=== PATIENT | female | born 1985 | race Caucasian/White ===

== ENCOUNTER 2023-04-29 14:51 | Emergency (ER) | payer OTHER ==
[2023-04-29 15:15] VITALS: BP 121/87; TEMP 97.8
[2023-04-29] MEDS ORDERED: NICOTINE 21MG/24HR PATCH TRANSDERM STA (15:15)
--- NOTE | 2023-04-29 15:15 | ED ---
General Adult HPI - General Chief complaint: Psychiatric Symptoms Stated complaint: mental Health Time Seen by Provider: 04/29/23 15:01 Source: patient, RN notes reviewed Mode of arrival: ambulatory Limitations: no limitations - History of Present Illness Initial comments: 38-year-old female with no significant past medical history presents the emergency department the chief complaint of psychiatric evaluation. Patient reports that she's had worsening depressive thoughts over the last few days. She denies any active suicidal plan however she does report passage suicidal ideation. She is requesting having a psychiatric evaluation. . She denies any visual hallucinations or auditory hallucinations. Denies recent alcohol use. Denies any specific complaints. - Related Data Allergies Allergy/AdvReac Type Severity Reaction Status Date / Time chlordiazepoxide AdvReac Rash/Hives Verified 04/29/23 14:56 [From Librium] Review of Systems ROS Statement: Those systems with pertinent positive or pertinent negative responses have been documented in the HPI. ROS Other: All systems not noted in ROS Statement are negative. Past Medical History History of Any Multi-Drug Resistant Organisms: None Reported Past Psychological History: No Psychological Hx Reported Smoking Status: Current every day smoker, Vaper Past Alcohol Use History: None Reported Past Drug Use History: None Reported General Exam - General Exam Comments Initial Comments: General: Alert, in no acute distress Head: atraumatic normocephalic. Eyes PERRL, EOMI intact, mucous membranes moist Respiratory: Lungs clear to auscultation bilaterally Cardiovascular: Heart rate regular rate and rhythm Abdominal: Soft without guarding or rebound Extremities: Normal inspection with full range of motion and normal capillary refill Neuroogic: alert and oriented 3, CN II-XII intact, able to ambulate with steady gait Skin: warm dry and intact with normal color Limitations: no limitations Course Vital Signs 04/29/23 14:57 Temperature 97.8 F Pulse Rate 103 H Respiratory 18 Rate Blood Pressure 121/87 O2 Sat by Pulse 100 Oximetry - Reevaluation(s) Reevaluation #1: 04/29/23 15:15 Patient history and physical exam performed. Medically clear for psychiatric evaluation. Reevaluation #2: 04/29/23 16:42 Case discussed with Rita she does not recommend inpatient treatment at this time. Patient was discharged in stable condition Medical Decision Making - Medical Decision Making Was pt. sent in by a medical professional or institution (Dr., PA, SOCIAL WELFARE RESEARCH WORKER, urgent care, hospital, or alf...) When possible be specific @ -[No] Did you speak to anyone other than the patient for history (EMS, parent, family, police, friend...)? What history was obtained from this source @ -[No] Did you review nursing and triage notes (agree or disagree)? Why? @ -[I reviewed and agree with nursing and triage notes] Were old charts reviewed (outside hosp., previous admission, EMS record, old EKG, old radiological studies, urgent care reports/EKG's, alf records)? Report findings @ -[No old charts were reviewed] Differential Diagnosis (chest pain, altered mental status, abdominal pain women, abdominal pain men, vaginal bleeding, weakness, fever, dyspnea, syncope, headache, dizziness, GI bleed, back pain, seizure, CVA, palpatations, mental health, musculoskeletal)? @ -[not applicable] EKG interpreted by me (3pts min.). @ -[As above] X-rays interpreted by me (1pt min.). @ -[None done] CT interpreted by me (1pt min.). @ -[None done] U/S interpreted by me (1pt. min.). @ -[None done] What testing was considered but not performed or refused? (CT, X-rays, U/S, labs)? Why? @ -[None] What meds were considered but not given or refused? Why? @ -[None] Did you discuss the management of the patient with other professionals (professionals i.e. DELIA Hernandez, SOCIAL WELFARE RESEARCH WORKER, lab, RT, psych nurse, protective services social worker, fiber analyst, teacher, licensed mortgage loan officer, correctional case manager)? Give summary @ Case discussed with JUAN Mar nurse who does not recommend inpatient placement at this time Was smoking cessation discussed for >3mins.? @ -[No] Was critical care preformed (if so, how long)? @ -[No] Were there social determinants of health that impacted care today? How? (Homelessness, low income, unemployed, alcoholism, drug addiction, transportation, low edu. Level, literacy, decrease access to med. care, shelter, rehab)? @ -[No] Was there de-escalation of care discussed even if they declined (Discuss DNR or withdrawal of care, Hospice)? DNR status @ -[No] What co-morbidities impacted this encounter? (DM, HTN, Smoking, COPD, CAD, Cancer, CVA, ARF, Chemo, Hep., AIDS, mental health diagnosis, sleep apnea, morbid obesity)? @ -[None] Was patient admitted / discharged? Hospital course, mention meds given and route, prescriptions, significant lab abnormalities, going to OR and other pertinent info. @ Discharged. This is a pleasant 38 -year-old female who presents the emergency department with psychiatric evaluation. Patient had a history physical exam performed. Heart rate regular rate and rhythm, lungs clear to auscultation bilaterally abdomen is soft, nontender. Case is discussed with Isabela, JUAN who does not believe patient needs inpatient management at this time. I discussed the results in detail with the patient verbalized understanding all questions were addressed. Patient had 1 L IV fluids with symptomatic improvement. She Is agreeable with the plan for discharge home at this time. Recommend close follow-up with PCP in 2-3 days. Return precautions discussed at length. Patient discharged in stable condition. Case discussed with Dr. Coleman, who agrees with plan of care Undiagnosed new problem with uncertain prognosis? @ -[No] Drug Therapy requiring intensive monitoring for toxicity (Heparin, Nitro, Insulin, Cardizem)? @ -[No] Were any procedures done? @ -[No] Diagnosis/symptom? @ -Anxiety - Eating Disorder Acute, or Chronic, or Acute on Chronic? @ -Acute Uncomplicated (without systemic symptoms) or Complicated (systemic symptoms)? @ -Uncomplicated Side effects of treatment? @ -[No] Exacerbation, Progression, or Severe Exacerbation? @ -[No] Poses a threat to life or bodily function? How? (Chest pain, USA, NV, pneumonia, PE, COPD, DKA, ARF, appy, cholecystitis, CVA, Diverticulitis, Homicidal, Suicidal, threat to staff... and all critical care pts) @ -Low llikelihood Disposition Clinical Impression: Eating disorder, Acute anxiety, Depression Disposition: HOME SELF-CARE Condition: Stable Instructions (If sedation given, give patient instructions): Mood Disorders (ED), Generalized Anxiety Disorder (ED) Additional Instructions: Please monitor symptoms closely Please return to the nearest emergency department if worsening symptoms Is patient prescribed a controlled substance at d/c from ED?: No Referrals: [facility] [Family Provider] - 1-2 days Time of Disposition: 16:43
[2023-04-29 17:07] VITALS: PULSE 93; RESP 17
== END 2023-04-29 17:09 | disposition home or self-care (01) ==
LOC: EC 14:51
DX: F41.9 Anxiety disorder, unspecified (principal); F32.A Depression, unspecified; F50.9 Eating disorder, unspecified; F17.290 Nicotine dependence, other tobacco product, uncomplicated; Z88.8 Allergy status to other drugs, medicaments and biological substances
CPT/HCPCS: 82075; 99284; S4990

== ENCOUNTER 2023-09-09 00:47 | Emergency (ER) | payer OTHER ==
--- NOTE | 2023-09-09 00:57 | ED ---
Alcohol HPI - General Source: police, RN notes reviewed, old records reviewed Mode of arrival: EMS Limitations: altered mental status - History of Present Illness MD Complaint: alcohol intoxication Last Drink: just ACTIVITY LEADER -: minute(s) Previous Visits for Alcohol Intoxication?: Yes Recent Trauma: Yes Treatments Prior to Arrival: none Chronic Alcohol Use: Yes <Trent Isaac - Last Filed: 09/09/23 03:13> <Marcel Moreno - Last Filed: 09/09/23 11:48> - General Stated Complaint: Suicidal Time Seen by Provider: 09/09/23 00:49 - History of Present Illness Initial Comments: This is a 38-year-old female with a poor historian refusing to participate in history of present illness, patient was brought in by PD for psychiatric evaluation and severe alcohol intoxication (Trent Isaac) - Related Data Allergies Allergy/AdvReac Type Severity Reaction Status Date / Time chlordiazepoxide AdvReac Rash/Hives Verified 09/09/23 01:05 [From Librium] Review of Systems ROS Other: All systems not noted in ROS Statement are negative. <Trent Isaac - Last Filed: 09/09/23 03:13> ROS Other: All systems not noted in ROS Statement are negative. <Marcel Moreno - Last Filed: 09/09/23 11:48> ROS Statement: Those systems with pertinent positive or pertinent negative responses have been documented in the HPI. Past Medical History History of Any Multi-Drug Resistant Organisms: None Reported Past Psychological History: No Psychological Hx Reported Smoking Status: Current every day smoker, Vaper Past Alcohol Use History: None Reported Past Drug Use History: None Reported <Trent Isaac - Last Filed: 09/09/23 03:13> General Exam General appearance: alert, in no apparent distress Head exam: Present: atraumatic, normocephalic, normal inspection Eye exam: Present: normal appearance, PERRL, EOMI. Absent: scleral icterus, conjunctival injection, periorbital swelling ENT exam: Present: normal exam, mucous membranes moist Neck exam: Present: normal inspection. Absent: tenderness, meningismus, lymphadenopathy Respiratory exam: Present: normal lung sounds bilaterally. Absent: respiratory distress, wheezes, rales, rhonchi, stridor Cardiovascular Exam: Present: regular rate, normal rhythm, normal heart sounds. Absent: systolic murmur, diastolic murmur, rubs, gallop, clicks GI/Abdominal exam: Present: soft, normal bowel sounds. Absent: distended, tenderness, guarding, rebound, rigid Extremities exam: Present: normal inspection, full ROM, normal capillary refill. Absent: tenderness, pedal edema, joint swelling, calf tenderness Back exam: Present: normal inspection Neurological exam: Present: alert, oriented X3, CN II-XII intact Psychiatric exam: Present: normal affect, normal mood Skin exam: Present: warm, dry, intact, normal color. Absent: rash <Trent Isaac - Last Filed: 09/09/23 03:13> Course <Trent Isaac - Last Filed: 09/09/23 03:13> Vital Signs 09/09/23 09/09/23 09/09/23 00:58 05:55 11:04 Temperature 98.8 F 98.1 F 98.1 F Pulse Rate 120 H 102 H 98 Respiratory 28 H 20 16 Rate Blood Pressure 124/80 108/57 97/60 O2 Sat by Pulse 99 97 99 Oximetry - Reevaluation(s) Reevaluation #1: 09/09/23 03:14 Medical records reviewed (Trent Isaac) Medical Decision Making <Marcel Moreno - Last Filed: 09/09/23 11:48> - Medical Decision Making Patient was medically cleared by prior physician and pending psychiatric evaluation. Patient evaluated by JUAN Joseph. Patient does not meet inpatient psychiatric criteria.Patient cleared for discharge home. Patient will be discharged home with a safety plan. Diagnosis/symptom? @ -Encounter for psychiatric evaluation, alcohol intoxication Acute, or Chronic, or Acute on Chronic? @ -Acute Uncomplicated (without systemic symptoms) or Complicated (systemic symptoms)? @ -Uncomplicated Side effects of treatment? @ -None Exacerbation, Progression, or Severe Exacerbation] @ -No Poses a threat to life or bodily function? @ -Unlikely (Marcel Moreno) Disposition <Trent Isaac - Last Filed: 09/09/23 03:13> Is patient prescribed a controlled substance at d/c from ED?: No Time of Disposition: 11:46 <Marcel Moreno - Last Filed: 09/09/23 11:48> Clinical Impression: Encounter for psychiatric assessment, Alcohol intoxication Disposition: HOME SELF-CARE Condition: Good Additional Instructions: follow safety plan Referrals: Sweetie Naranjo MD [Primary Care Provider] - 1-2 days
[2023-09-09] MEDS: NICOTINE 14MG/24HR PATCH TRANSDERM STA (01:04)
[2023-09-09] MEDS: clonazePAM 0.5 MG TAB PO STA (02:43)
[2023-09-09 05:57] VITALS: TEMP 98.1
[2023-09-09] MEDS: LORazepam 1 MG TAB PO STA (06:00)
[2023-09-09 11:20] VITALS: BP 97/60; PULSE 98; RESP 16
== END 2023-09-09 12:05 | disposition home or self-care (01) ==
LOC: EC 00:47
DX: Z00.8 Encounter for other general examination (principal); F10.229 Alcohol dependence with intoxication, unspecified; F17.290 Nicotine dependence, other tobacco product, uncomplicated; Z88.8 Allergy status to other drugs, medicaments and biological substances
CPT/HCPCS: 82075; 99285; S4990

== ENCOUNTER 2023-11-18 22:03 | Observation (INO) | payer OTHER ==
--- NOTE | 2023-11-18 22:41 | ED ---
Psych HPI - General Chief Complaint: Psychiatric Symptoms Stated Complaint: ETOH Time Seen by Provider: 11/18/23 22:21 Source: patient Mode of arrival: ambulatory Limitations: no limitations - History of Present Illness Initial Comments: This patient is a 38-year-old woman complaint that she feels that he is harming herself through drinking. She drank 2 pints of alcohol and a number of beers today. She has been depressed. She states she has history of anxiety and is out of her Klonopin so she has been drinking. MD Complaint: feels depressed -: days(s) Associated Psychiatric Symptoms: depression, suicidal ideation Quality: constant Improves With: none Worsens With: alcohol Context: recent alcohol abuse Associated Symptoms: denies other symptoms - Related Data Allergies Allergy/AdvReac Type Severity Reaction Status Date / Time chlordiazepoxide AdvReac Rash/Hives Verified 11/18/23 22:11 [From Librium] Review of Systems ROS Statement: Those systems with pertinent positive or pertinent negative responses have been documented in the HPI. ROS Other: All systems not noted in ROS Statement are negative. Constitutional: Denies: fever, chills Respiratory: Denies: cough, dyspnea Cardiovascular: Denies: chest pain, palpitations Gastrointestinal: Denies: abdominal pain, nausea, vomiting Genitourinary: Denies: dysuria, hematuria, abnormal menses Musculoskeletal: Denies: back pain Skin: Denies: rash Psychiatric: Reports: anxiety, depression, suicidal thoughts. Denies: auditory hallucinations, homicidal thoughts Past Medical History History of Any Multi-Drug Resistant Organisms: None Reported Past Psychological History: No Psychological Hx Reported Smoking Status: Current every day smoker, Vaper Past Alcohol Use History: Abuse, Daily, Heavy Past Drug Use History: None Reported General Exam Limitations: no limitations General appearance: alert, in no apparent distress Head exam: Present: atraumatic, normocephalic Eye exam: Present: normal appearance. Absent: scleral icterus, conjunctival injection Neck exam: Present: normal inspection Respiratory exam: Present: normal lung sounds bilaterally. Absent: respiratory distress, wheezes, rales, rhonchi, stridor Cardiovascular Exam: Present: regular rate, normal rhythm, normal heart sounds. Absent: systolic murmur, diastolic murmur, rubs, gallop GI/Abdominal exam: Present: soft. Absent: distended, tenderness, guarding, rebound, rigid, mass Extremities exam: Present: normal inspection, normal capillary refill Back exam: Present: normal inspection Neurological exam: Present: alert Psychiatric exam: Present: anxious, suicidal ideation. Absent: agitated, flat affect, manic, homicidal ideation Skin exam: Present: warm, dry, intact, normal color. Absent: rash Course Vital Signs 11/18/23 11/19/23 22:09 06:50 Temperature 98.8 F Pulse Rate 105 H 89 Respiratory 18 18 Rate Blood Pressure 131/91 123/88 O2 Sat by Pulse 98 98 Oximetry Medical Decision Making - Lab Data Lab Results 11/19/23 Range/Units 07:02 Urine Opiates Screen Not Detected (NotDetected) Ur Oxycodone Screen Not Detected (NotDetected) Urine Methadone Screen Not Detected (NotDetected) Ur Barbiturates Screen Not Detected (NotDetected) U Tricyclic Antidepress Not Detected (NotDetected) Ur Phencyclidine Scrn Not Detected (NotDetected) Ur Amphetamines Screen Not Detected (NotDetected) U Methamphetamines Scrn Not Detected (NotDetected) U Benzodiazepines Scrn Not Detected (NotDetected) Urine Cocaine Screen Not Detected (NotDetected) U Marijuana (THC) Screen Not Detected (NotDetected) Disposition Referrals: Sweetie Naranjo MD [Primary Care Provider] - 1-2 days
[2023-11-19] MEDS: ONDANSETRON ODT 4 MG TAB PO STA ×3 (01:03→06:45)
[2023-11-19 08:00] LABS: Amphetamine Screen,Urine Not Detected (NotDetected); Barbiturate Screen,Urine Not Detected (NotDetected); Benzodiazepines Screen,Urine Not Detected (NotDetected); Cocaine Screen,Urine Not Detected (NotDetected); Methadone Screen, Urine Not Detected (NotDetected); Opiate Screen,Urine Not Detected (NotDetected); Oxycodone Screen, Urine Not Detected (NotDetected); Phencyclidine Screen,Urine Not Detected (NotDetected); Tricyclic Antidepressant,Urine Not Detected (NotDetected); Urn Cannabinoid Scrn Not Detected (NotDetected)
[2023-11-19] MEDS ORDERED: LORazepam 0.5 MG TAB PO PRN (08:13)
[2023-11-19] MEDS: LORazepam 1 MG TAB PO PRN (08:34)
[2023-11-19] MEDS ORDERED: LORazepam 2 MG/ML INJ IV STA (11:08)
[2023-11-19] MEDS: SODIUM CHLORIDE 0.9% 500 ML 500 ML IV ONE (12:10)
[2023-11-19] MEDS: SODIUM CHLORIDE 0.9% 1,000 ML IV ONE ×2 (12:11→13:26)
[2023-11-19 12:15] LABS: Basophils # (A) 0.1 k/uL (0-0.2); Basophils % (A) 1 %; Eosinophils # (A) 0.4 k/uL (0-0.7); Eosinophils % (A) 5 %; HCT 43.3 % (34.0-46.0); HGB 14.2 gm/dL (11.4-16.0); Lymphocytes # (A) 1.4 k/uL (1.0-4.8); Lymphocytes % (A) 17 %; MCH 30.4 pg (25.0-35.0); MCHC 32.8 g/dL (31.0-37.0); MCV 92.6 fL (80.0-100.0); Mean Platelet Volume 7.9; Monocytes # (A) 0.5 k/uL (0-1.0); Monocytes % (A) 6 %; Neutrophils # (A) 5.5 k/uL (1.3-7.7); Neutrophils % (A) 69 %; Platelet Count 249 k/uL (150-450); RBC 4.67 m/uL (3.80-5.40)
[2023-11-19 12:24] LABS: ALT 17 U/L (4-34); AST 32 U/L (14-36); African American GFR (CKD) >90 (>60 ml/min/1.73 sqM); Albumin 4.9 g/dL (3.5-5.0); Alkaline Phosphatase 72 U/L (38-126); Anion Gap 8 mmol/L; Blood Urea Nitrogen 13 mg/dL (7-17); Calcium 9.3 mg/dL (8.4-10.2); Carbon Dioxide 25 mmol/L (22-30); Chloride 104 mmol/L (98-107); Glucose 92 mg/dL (74-99); Magnesium 1.7 mg/dL (1.6-2.3); Non-African American GFR(CKD) >90 (>60 ml/min/1.73 sqM); Potassium 4.1 mmol/L (3.5-5.1); Sodium 137 mmol/L (137-145); Total Bilirubin 0.8 mg/dL (0.2-1.3); Total Protein 7.8 g/dL (6.3-8.2)
[2023-11-19] MEDS ORDERED: LORazepam 2 MG/ML INJ IV PRN (12:45)
[2023-11-19] MEDS: THIAMINE 100 MG/ML 2 ML VIAL IM STA ×2 (13:27→15:05)
--- NOTE | 2023-11-19 14:07 | P.HPIM ---
History of Present Illness 38-year-old female came in with complaints of alcohol intoxication. Apparently she was trying to harm herself drinking a lot of alcohol although she denied any suicidal ideations to me patient is slightly depressed at this time. Patient is willing to go to alcohol patient does not drink alcohol on daily basis but has been binge drinking about 2 pints of hard liquor every day. Patient did have withdrawals in the past but she believes she is having withdrawals at this time. Patient last drink was last night. REVIEW OF SYSTEMS: CONSTITUTIONAL: No fever, no malaise, no fatigue. HEENT: No recent visual problems or hearing problems. Denied any sore throat. CARDIOVASCULAR: No chest pain, orthopnea, PND, no palpitations, no syncope. PULMONARY: No shortness of breath, no cough, no hemoptysis. GASTROINTESTINAL: No diarrhea, no nausea, no vomiting, no abdominal pain. NEUROLOGICAL: No headaches, no weakness, no numbness. HEMATOLOGICAL: Denies any bleeding or petechiae. GENITOURINARY: Denies any burning micturition, frequency, or urgency. MUSCULOSKELETAL/RHEUMATOLOGICAL: Denies any joint pain, swelling, or any muscle pain. ENDOCRINE: Denies any polyuria or polydipsia. The rest of the 14-point review of systems is negative. PHYSICAL EXAMINATION: GENERAL: The patient is alert and oriented x3, not in any acute distress. Well developed, well nourished. HEENT: Pupils are round and equally reacting to light. EOMI. No scleral icterus. No conjunctival pallor. Normocephalic, atraumatic. No pharyngeal erythema. No thyromegaly. CARDIOVASCULAR: S1 and S2 present. No murmurs, rubs, or gallops. PULMONARY: Chest is clear to auscultation, no wheezing or crackles. ABDOMEN: Soft, nontender, nondistended, normoactive bowel sounds. No palpable organomegaly. MUSCULOSKELETAL: No joint swelling or deformity. EXTREMITIES: No cyanosis, clubbing, or pedal edema. NEUROLOGICAL: Gross neurological examination did not reveal any focal deficits. SKIN: No rashes. Assessment and plan -Alcohol withdrawal patient will be on Ativan CIWA protocol and will start her on scheduled Librium. IV fluids and thiamine multivitamin supplementation -Depression, denies any suicidal ideations to me although may have complained of suicide to the ER physician because of which patient has a sitter and I will consult psychiatry. -Alcoholic gastritis for which we will use Protonix DVT prophylaxis: Early ambulation for text Past Medical History History of Any Multi-Drug Resistant Organisms: None Reported Past Psychological History: No Psychological Hx Reported Smoking Status: Current every day smoker, Vaper Past Alcohol Use History: Abuse, Daily, Heavy Past Drug Use History: None Reported Medications and Allergies Home Medications Medication Instructions Recorded Confirmed Type Dextroamphetamine/Amphetamine 10 mg PO BID 11/19/23 11/19/23 History [Adderall] OLANZapine [ZyPREXA] 2.5 mg PO HS 11/19/23 11/19/23 History Omeprazole [PriLOSEC] 20 mg PO DAILY 11/19/23 11/19/23 History Ondansetron Odt [Zofran Odt] 4 mg PO Q8HR PRN 11/19/23 11/19/23 History clonazePAM [KlonoPIN] 1 mg PO BID 11/19/23 11/19/23 History methocarbamoL [Robaxin-750] 750 mg PO Q4H PRN 11/19/23 11/19/23 History Allergies Allergy/AdvReac Type Severity Reaction Status Date / Time chlordiazepoxide AdvReac Rash/Hives Verified 11/18/23 22:11 [From Librium] Physical Exam Vitals: Vital Signs Temp Pulse Resp BP Pulse Ox 11/19/23 08:00 114 H 20 138/86 97 11/19/23 06:50 89 18 123/88 98 11/18/23 22:09 98.8 F 105 H 18 131/91 98 Intake and Output 11/18/23 11/19/23 11/19/23 22:59 06:59 14:59 Other: Weight 51.256 kg Results CBC & Chem 7: 11/19/23 12:06 11/19/23 12:06
[2023-11-19] MEDS: LORazepam 2 MG/ML INJ IV PRN ×2 (14:56→20:10)
[2023-11-19] MEDS ORDERED: chlordiazePOXIDE 25 MG CAP PO SCH (16:00)
[2023-11-19] MEDS: ONDANSETRON 4 MG/2 ML VIAL IVP STA (18:03)
[2023-11-19] MEDS: NICOTINE 21MG/24HR PATCH TRANSDERM SCH (18:04)
[2023-11-19] MEDS: LORazepam 2 MG/ML INJ IV STA (18:07)
[2023-11-19 19:00] VITALS: RESP 18
[2023-11-19] MEDS: FAMOTIDINE 20 MG TAB PO SCH (20:10)
[2023-11-19] MEDS ORDERED: ONDANSETRON ODT 4 MG TAB PO PRN (20:48)
[2023-11-19] MEDS ORDERED: methocarbamoL 750 MG TAB PO PRN (20:48)
[2023-11-19] MEDS: OLANZapine 2.5 MG TAB PO SCH (21:46)
[2023-11-19] MEDS: ACETAMINOPHEN TAB 325 MG TAB PO PRN (21:46)
[2023-11-20] MEDS: LORazepam 1 MG TAB PO PRN (09:39)
[2023-11-20] MEDS: THIAMINE 100 MG TAB PO SCH ×2 (09:39→09:44)
[2023-11-20] MEDS ORDERED: LORazepam 1 MG TAB PO PRN (10:43)
--- NOTE | 2023-11-20 10:49 | P.DS ---
Providers Date of admission: 11/19/23 12:48 Attending physician: Bernice Maria Consults: 11/19/23 13:58 Consult Physician Routine Consulting Provider: Darwin Ponce Consult Reason/Comments: depression Do you want consulting provider notified?: Yes Primary care physician: [facility] Course: Patient is admitted for alcohol withdrawal patient binge drinks has been drinking for the last week. Patient does not have any significant withdrawals at this time will not require much of Ativan may require 6 to 8 hours as needed for alcohol withdrawals. Patient is medically stable to be discharged to psychiatric floor. PHYSICAL EXAMINATION: GENERAL: The patient is alert and oriented x3, not in any acute distress. Well developed, well nourished. HEENT: Pupils are round and equally reacting to light. EOMI. No scleral icterus. No conjunctival pallor. Normocephalic, atraumatic. No pharyngeal erythema. No thyromegaly. CARDIOVASCULAR: S1 and S2 present. No murmurs, rubs, or gallops. PULMONARY: Chest is clear to auscultation, no wheezing or crackles. ABDOMEN: Soft, nontender, nondistended, normoactive bowel sounds. No palpable organomegaly. MUSCULOSKELETAL: No joint swelling or deformity. EXTREMITIES: No cyanosis, clubbing, or pedal edema. NEUROLOGICAL: Gross neurological examination did not reveal any focal deficits. SKIN: No rashes. Assessment and plan Alcohol withdrawal -Alcohol intoxication -Nicotine abuse -Depression/bipolar disorder/anxiety disorder Plan - Discharge Summary New Discharge Prescriptions: New Thiamine [Vitamin B-1] 100 mg PO DAILY tab LORazepam [Ativan] 1 mg PO TID PRN 3 Days #9 tab PRN Reason: Alcohol Withdrawal Continue Ondansetron Odt [Zofran ODT] 4 mg PO Q8HR PRN PRN Reason: Nausea And Vomiting clonazePAM [KlonoPIN] 1 mg PO BID Omeprazole [PriLOSEC] 20 mg PO DAILY OLANZapine [ZyPREXA] 2.5 mg PO HS methocarbamoL [Robaxin-750] 750 mg PO Q4H PRN PRN Reason: Muscle Pain Dextroamphetamine/Amphetamine [Adderall] 10 mg PO BID Discharge Medication List Dextroamphetamine/Amphetamine [Adderall] 10 mg PO BID 11/19/23 [History] OLANZapine [ZyPREXA] 2.5 mg PO HS 11/19/23 [History] Omeprazole [PriLOSEC] 20 mg PO DAILY 11/19/23 [History] Ondansetron Odt [Zofran ODT] 4 mg PO Q8HR PRN 11/19/23 [History] clonazePAM [KlonoPIN] 1 mg PO BID 11/19/23 [History] methocarbamoL [Robaxin-750] 750 mg PO Q4H PRN 11/19/23 [History] LORazepam [Ativan] 1 mg PO TID PRN 3 Days #9 tab 11/20/23 [Rx] Thiamine [Vitamin B-1] 100 mg PO DAILY tab 11/20/23 [Rx] Follow up Appointment(s)/Referral(s): Sweetie Naranjo MD [Primary Care Provider] - 1 Week Discharge Disposition: TRANSFER TO PSYCH HOSP/UNIT
[2023-11-20 14:58] VITALS: BP 146/87; PULSE 98; TEMP 98.1
== END 2023-11-20 14:20 ==
LOC: EC 22:03 → 5NMEDONC 11-19 12:48
PROVIDERS: ADMIT Internal Medicine; ATTEND Internal Medicine
DX: F10.139 Alcohol abuse with withdrawal, unspecified (principal); F10.129 Alcohol abuse with intoxication, unspecified; F31.9 Bipolar disorder, unspecified; K29.20 Alcoholic gastritis without bleeding; R45.851 Suicidal ideations; F41.9 Anxiety disorder, unspecified; F17.290 Nicotine dependence, other tobacco product, uncomplicated; Z79.899 Other long term (current) drug therapy; Z88.8 Allergy status to other drugs, medicaments and biological substances
CPT/HCPCS: 96376; 96361 ×2; 96374; 96375; 99284; 36415; 82075; 80053; 83735; 85025; 80306; G0378 ×2; S4990 ×2; J2060; J3411; J2405